=== PATIENT | female | born 1985 | race Two or more races ===

== ENCOUNTER 2018-05-10 17:08 | Emergency (ER) | payer MEDICAID, OTHER ==
[~2018-05-10] VITALS: Ht 175.3 cm; Wt 104.5 kg
[~2018-05-10 17:08] MED LIST: NO HOME MEDS
[2018-05-10 17:54] VITALS: BP 147/114
[2018-05-10 19:02] LABS: URINE HCG NEGATIVE (NEG)
== END 2018-05-10 19:19 | disposition home or self-care (01) ==
LOC: ER 17:09
DX: N91.2 Amenorrhea, unspecified (principal); R11.0 Nausea; Z88.0 Allergy status to penicillin
CPT/HCPCS: 81025; 99281; 99283